=== PATIENT | male | born 1935 | race Caucasian/White ===

== ENCOUNTER 2017-01-28 07:06 | Emergency (ER) | payer OTHER ==
--- NOTE | 2017-01-28 07:53 | EDPHY ---
H & P Time Seen by Provider: 01/28/17 07:52 HPI/ROS: Chief complaint. jaw swelling HPI. 82-year-old male with left jaw swelling and tenderness for 1 day. 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 It feels similar and presents similar to previous stones. For some reason they seem to have always been on the left side. He has been successfully treated with antibiotics and lemon drops. It is somewhat tender. He does not have a sore throat. No trouble swallowing breathing or speaking. No other complaints. He is visiting from [place] [place] however does not have a physician here in [place]. ROS Constitutional. no fever/chills, no weakness Eyes. no problems with vision ENT. Swelling left jaw Cardiovascular. no chest pain Respiratory. no shortness of breath, no cough Abdominal. no abdominal pain, no nausea/vomiting, no diarrhea . no problems urinating MS. no calf pain/swelling, no neck/back pain, no joint pain Skin. no rash Lymph. no swollen glands Neuro. no headache, no dizziness, no difficulty walking or with speech Past Medical/Surgical History: Kidney stones, gout, parotid gland duct stones, hypertension, kidney stones Social History: , nonsmoker, no alcohol Smoking Status: Never smoked Physical Exam: General Appearance: Alert well-developed male mild distress vital signs are stable Eyes: Pupils equal and round no pallor or injection. ENT, pharynx without injection. There is no evidence for dental infection or abscess. Tender mass along the left mandible consistent with swollen, tender parotid gland. I am unable to see any purulence coming from the duct in his mouth Respiratory: There are no retractions, lungs are clear to auscultation. Cardiovascular: Regular rate and rhythm. Gastrointestinal: Abdomen is soft and nontender, no masses, bowel sounds normal. Neurological: Awake and alert, sensory and motor exams grossly normal. Skin: Warm and dry, no rashes. Musculoskeletal: Neck is supple nontender. Extremities symmetrical, full range of motion. Psychiatric: Patient is oriented X 3, there is no agitation. Constitutional: Initial Vital Signs Temperature (C) 36.7 C 01/28/17 07:10 Heart Rate 86 01/28/17 07:10 Respiratory Rate 16 01/28/17 07:10 Blood Pressure 155/78 H 01/28/17 07:10 O2 Sat (%) 98 01/28/17 07:10 O2 Delivery Mode Room Air Allergies/Adverse Reactions: ciprofloxacin [From Cipro] Allergy (Verified 01/28/17 07:08) Home Medications: Medication Instructions Recorded Allopurinol 01/28/17 Amlodipine Besylate 01/28/17 Amox Tr/K Clav (Augmentin) 500 mg PO Q8 #20 tab 01/28/17 [Augmentin 500/125 MG TAB (*)] Aspirin 81mg (*) 01/28/17 Hydrocodone/APAP 5/325 [[place] 1 each PO Q4-6PRN PRN #10 tab 01/28/17 5/325 (*)] Irbesartan 01/28/17 Lipitor 01/28/17 Metoprolol Succinate 01/28/17 Medical Decision Making ED Course/Re-evaluation: Patient, his and I discussed treatment plan including criteria for return importance of follow-up and further evaluation. They expressed understanding and agreement. The patient has also asked me for the name of a urologist as he is concerned that he may develop a kidney stone while here in [place] Differential Diagnosis: Clinically the patient has a parotid duct obstruction. He has had multiple prior similar symptoms. At this point no evidence for infection or sepsis. No airway obstruction or evidence for abscess Departure - Departure Disposition: Home, Routine, Self-Care Clinical Impression: Salivary duct stone Condition: Good Instructions: Parotid Duct Obstruction (ED) Additional Instructions: Hard candy including lemon drops to stimulate cell elevation. Augmentin as antibiotic. Tylenol and ibuprofen as needed for discomfort. I am writing you a prescription for stronger pain medication if necessary. Return today for worsening symptoms. Please call Ear Nose Throat physician tomorrow for further evaluation and treatment. Dr. Sandra Vance is the ENT physician Dr. Amos Bond is the urologist should you have problems with kidney stones Referrals: Sandra Vance MD [Medical Doctor] - As per Instructions Cali Bond MD [Medical Doctor] - As per Instructions Prescriptions: Amox Tr/K Clav (Augmentin) [Augmentin 500/125 MG TAB (*)] 500 mg PO Q8 #20 tab Hydrocodone/APAP 5/325 [[place] 5/325 (*)] 1 each PO Q4-6PRN PRN #10 tab PRN Reason: Pain, Moderate
[2017-01-28 08:33] VITALS: BP 144/67; PULSE 81; RESP 18; TEMP 97.9; O2SAT 95
== END 2017-01-28 08:33 | disposition home or self-care (01) ==
DX: K11.5 Sialolithiasis (principal); I10 Essential (primary) hypertension; Z79.82 Long term (current) use of aspirin